=== PATIENT | female | born 1980 | race Caucasian/White ===

== ENCOUNTER 2017-03-16 17:25 | Emergency (ER) | payer SELFPAY ==
[~2017-03-16] VITALS: Ht 160 cm; Wt 104.5 kg
[2017-03-16 17:30] VITALS: BP 134/87; PULSE 94; RESP 22; O2SAT 93
[2017-03-16 17:49] VITALS: BP 143/100; RESP 16; O2SAT 94
[2017-03-16] MEDS ORDERED: FOLI1TAB18 PO (17:59)
[2017-03-16] MEDS ORDERED: PREN-56 PO (17:59)
--- NOTE | 2017-03-16 18:50 | ED.REPORT ---
HPI- Female Date of Service March 16, 2017 ED Provider: Kd Chacon MD Patient is a 37 year old, female, without significant past medical history who presents to [facility] ED accompanied by her complaining of vaginal bleeding for 4 days. Patient went to [facility] to find out that she was about 9 weeks . She reports mild vaginal spotting that started 3 days ago and today she started having sharp pelvic pain and more intense vaginal bleeding. She denies chills, fever, nausea, vomiting, diarrhea, weakness. Nursing Notes Stated Complaint: POSS MISCARRIAGE Chief Complaint: Female Abdominal Pain Nursing Notes Reviewed: Yes Allergies: Coded Allergies: No Known Allergies (Unverified , 03/16/17) Scheduled Folic Acid (Folic Acid) 1 Mg Tablet 1 MG PO DAILY Nitrofurantoin Macrocrystal (Nitrofurantoin) 25 Mg Capsule 100 MG PO BID [id number]/Iron Fumarate/FA/Dss ( 19 Tablet) 1 Each Tablet 1 EACH PO DAILY General Time Seen by MD: 18:06 Chief Complaint Pelvic pain, Vaginal bleeding... (Moderate) Hx Obtained From: Patient Arrived By: Walk-in Sudden in Onset?: No Onset Occurred: 3 days ago Context of Onset: , 1st trimester Symptom Duration: Since onset Location: : LLQ: RLQ Quality: Cramping Radiation: Does not radiate Severity: Current: Mild Status: Positive - ED urine HCG Sexual History / Control: Reports control pills : 2 Para: 1 RH Status / Blood Type: Rh Positive Recent Healthcare: No recent doctor visit Past Medical History Past Medical History Notes: None Past Surgical History Reports: Appendectomy, Smoking History Current Every Day Smoker Social History Alcohol Use: Denies alcohol use Drug Use: Denies drug use Ambulatory Status Independent Review of Systems Basic Review of Systems Eyes: Vision NL, No discharge Respiratory: No shortness of breath, No cough, No wheeze Cardiovascular: No chest pain, No dyspnea on exertion, No orthopnea, No parox noct dyspnea, No palpitations Hematologic: No bruising Allergy / Immune: No allergy Psychiatric: Normal thought content Constitutional: Denies: Chills, Fatigue, Fever, Malaise Female: Reports: Pelvic pain, Vaginal bleeding - abnl, Denies: Dysuria, Flank pain, Urinary frequency Physical Exam Initial Vital Signs Vital Signs (First) Date Time Temp Pulse Resp B/P Pulse Ox O2 Delivery O2 Flow Rate FiO2 03/16/17 17:30 37.0 94 22 134/87 93 Room Air Initial VS: Reviewed, Vital signs abnormal (Pulse 94, respiration rate 22) General/Constitutional: Well-developed, Well-nourished Head / Eyes: Atraumatic, Normocephalic, PERRL ENT: Mucous membranes moist, Conjunctiva normal, No scleral icterus Neck: Supple, Non-tender, Full range of motion Respiratory: Breath sounds normal, Clear to auscultation, No respiratory distress Cardiovascular: Regular rate & rhythm, Heart sounds normal, Intact distal pulses Abdomen / GI: Soft, No guarding, No rebound Back: No CVA tenderness Lymphatic: No lymphadenopathy Extremities: Vascular intact, Neuro intact, No swelling, No tenderness Skin: Warm, Dry, No cyanosis Neurologic: Alert, Oriented, Nonfocal Psychiatric: Mood/affect normal, Behavior normal, Normal thought content Female Genitourinary: Human Resources Operations Coordinator present, External genitalia NL, No lesions or rash, Perineal skin NL Vaginal Bleeding / Discharge: Positive: Bleeding moderate, Discharge bloody, Discharge thick Pelvic Exam: Positive: Os is open (1 cm) Tenderness/Guarding/Rebound: Positive: Tender LLQ... (Mild), Tender RLQ... ( Mild), Tender suprapubic Interpretation & Diagnostics Lab Results Interpretation Result Diagram: 03/16/17184403/16/171844 Test 03/16/17 18:33 03/16/17 18:45 03/16/17 18:55 Hold Urine Received (Received) White Blood Count 11.2th/mm3 (3.8-10.1) Red Blood Count 4.44mil/mm3 (3.90-5.20) Hemoglobin 13.4g/dL (12.0-15.6) Hematocrit 39.5% (35.0-46.0) Mean Corpuscular Volume 89.0fL (81-100) Mean Corpuscular Hemoglobin 30.2pg (27.0-35.0) Mean Corpuscular Hemoglobin Concent 33.9% (32.0-37.0) Red Cell Distribution Width 12.7% (12.3-15.4) Platelet Count 287bil/L (150-400) Sodium Level 136mEq/L (134-144) Potassium Level 4.2mEq/L (3.5-5.2) Chloride Level 98mEq/L (97-108) Carbon Dioxide Level 20mmol/L (18-29) Blood Urea Nitrogen 10mg/dL (6-20) Creatinine 0.68mg/dL (0.57-1.00) Estimat Glomerular Filtration Rate 140mL/min (>59) Glucose Level 101mg/dL (60-99) Calcium Level 9.2mg/dL (8.5-10.1) Total Bilirubin 0.2mg/dL (0.0-1.2) Aspartate Amino Transf (AST/SGOT) 15U/L (0-50) Alanine Aminotransferase (ALT/SGPT) 14U/L (0-32) Alkaline Phosphatase 60U/L (25-150) Total Protein 7.0g/dL (6.4-8.4) Albumin 3.7g/dL (3.4-5.0) HCG Beta Subunit [id number]/mL Hold [place] Top Tube Received (Received) Urine Color Yellow (YELLOW) Urine Appearance Clear (CLEAR,HAZY) Urine pH 5.5 (5.0-8.0) Urine Specific [place] 1.025 (1.003-1.035) Urine Protein Negativemg/dL (NEG,TRACE) Urine Glucose (UA) Negativemg/dL (NEGATIVE) Urine Ketones Negativemg/dL (NEGATIVE) Urine Occult Blood Small (NEGATIVE) Urine Nitrite Positive (NEGATIVE) Urine Bilirubin Negative (NEGATIVE) Urine Urobilinogen Normalmg/dL (NORMAL) Urine Leukocyte Esterase Negative (NEGATIVE) Urine RBC 0-2/hpf (0-2) Urine WBC 0-5/hpf (0-5) Urine Epithelial Cells Few/hpf (NONE-MOD) Urine Crystals None seen (NONE SEEN) Urine Bacteria Many/hpf (NONE-FEW) Urine Hyaline Casts None/lpf (NONE) Urine Granular Casts None seen (NONE SEEN) Urine Waxy Casts None seen (NONE SEEN) Urine Red Blood Cell Casts None seen (NONE SEEN) Urine White Blood Cell Casts None seen (NONE SEEN) Urine Mucus Present (None Seen) Urine Trichomonas None seen (NONE SEEN) Urine Yeast None (NONE SEEN) Urinalysis Comment None Urine Culture Reflexed Indicated Lab Results Interpretation: Positive UA test HCG-beta 18953 Rh + CBC Interpretation WBC elevated (11.2) US Focused OB Exam Type: Diagnostic Exam Interpreted by: Allied health pract Indication: Quant hCG positive, by patient hx, Pelvic pain, Vaginal bleeding Interpretation: demise, Complex ovarian cyst Re-Eval/Medical Decision Med Decision/Clinical Course Patient is a 37 year old female who presented to ED c/o vaginal bleeding and pelvic pain. Urine dip shows positive , 2+ leukocytes, positive nitrites, and positive blood. Transvaginal/pelvic US revealed demise, complex left ovarian cyst and intrauterine mass. Dr. Deras, [facility]BS[facility] has been consulted. He recommended two options, surgical and/or medical evacuation. Options were discussed with the patient and her . They opted for medical management. Patient was given misoprostol, 400 mg orally once while in the ED. She will take the second dose, 400 mg in 4 hours. She was consulted on possible side effects. She was recommended to take Ibuprofen as needed for cramps. She was sent home with Zofran for nausea. She will follow up with OB/ [facility] clinic within a few days. She was given a prescription for Nitrofurantoin to treat her UTI. Patient understands and agrees with the plan. She was discharged in a stable condition. Counseled Regarding: Diagnosis, Lab results, Need for follow-up, When/why to return to ED Discharge & Departure Shift Change Sign-Out Response to Therapy: Improved Impression: Primary Impression: demise Additional Impression: UTI (urinary tract infection) Urinary tract infection type: site unspecified Hematuria presence: with hematuria Qualified Code: N39.0 - Urinary tract infection, site not specified Disposition: Home Discharge Condition Condition: Stable Additional Instructions: Thank you for seeking care at Emergency Department today. We are very sorry for the loss of your baby. You opted for medical management. You received a first dose of misoprostol, 400 mg orally while in the Emergency Department. The second dose should be taken in 4 hours. You may have abdominal cramping, vaginal bleeding and nausea. Please take Ibuprofen for cramping and Zofran for nausea as needed. Please call [facility]ICAL OBSERVER clinic tomorrow and schedule a follow up appointment for further treatment and management of your pelvic ultrasound findings. Address: [address] [place] [id number]. Phone: . You are also given an antibiotic to treat urinary tract infection. Please take it as directed. Call residency clinic and make an appointment to establish care with a primary care provider. Address: [address] , [place] [address]. Phone: . Please return to Emergency Department if your symptoms worsen. Thank you for letting us partake in your care today. Referrals: NOPCP (PCP) EDSupervising Provider for APC: Kd Chacon MD Attending Statement Attending attestation: I saw this patient in conjunction with the above named resident. I was present for all cotton portions of the history taking and physical examination. I agree with the workup, evaluation, treatment and disposition. Kd Manriquez MD, MD March 16, 2017 18:50 Michelle Jefferson March 16, 2017 18:52 Lynda Siegel DO March 16, 2017 19:25
[2017-03-16 18:53] LABS: Mean Corpuscular Hemoglobin 30.2 pg (27.0-35.0)
[2017-03-16 19:13] LABS: APPEARANCE,URINE CLEAR (CLEAR,HAZY); COLOR,URINE YELLOW (YELLOW); PH,URINE 5.5 (5.0-8.0)
[2017-03-16 19:14] LABS: OCCULT BLOOD,URINE SMALL (NEGATIVE); UROBILINOGEN,URINE NORMAL (NORMAL)
--- NOTE | 2017-03-16 20:41 | DRSVH ---
PROCEDURE: US OB<14 WKS+OB TRANSVAG INDICATIONS: 37 year-old female with suspected miscarriage. OUTSIDE/PRIOR DATING DATA: Last menstrual period (LMP): Not known. LMP-based estimated date of delivery (CELSO): Not known. First dating scan (date and location): Present study. Estimated date of delivery (CELSO) from first dating scan: Not applicable. TECHNIQUE: Real-time scanning was performed of the fetus and maternal pelvic organs, with image documentation. Endovaginal scanning was also performed to better visualize the fetus and maternal ovaries. COMPARISON: None. FINDINGS: Embryo: Single intrauterine gestation demonstrates no detectable heart rate on M-mode or power Doppler interrogation. [place] rump length of 1.5 cm corresponds with 7 weeks 6 days estimated gestatio nal age. Normal yolk sac is present. Amniotic fluid is qualitatively normal in amount. Measurement variability in dating: +/- 4 weeks by LMP, +/- 7 days by mean sac diameter (use before 6 weeks gestation if crown-rump length not able to be measured), +/- 5 days by crown-rump length (6-12 weeks gestation). Maternal organs: Right uterine fundal fibroid measures 9.2 x 9.0 x 8.7 cm. Left ovary demonstrates a dominant multiseptated cyst; right ovary appears unremarkable in morphology. Limited images through the kidneys demonstrate no hydronephrosis. IMPRESSION: 1. Constellation of findings diagnostic for early failure. 2. Large right uterine fundal fibroid measures up to 9.2 cm. 3. Dominant multiseptate cyst within the left ovary, presumably functional given the patient's age. Dictated by: Gabe Valdez M.D. on 03/16/2017 at 20:34 Approved by: Gabe Valdez M.D. on 03/16/2017 at 20:40
[2017-03-16] MEDS ORDERED: _Ondansetron ODT 4 mg Tablet PO PRN (21:55)
[2017-03-16] MEDS ORDERED: NITR25CA2 PO (21:58)
[2017-03-16 22:15] VITALS: BP 136/95; PULSE 88; RESP 16; O2SAT 97
== END 2017-03-16 22:16 | disposition home or self-care (01) ==
LOC: SED 17:25
DX: O36.4XX0 Maternal care for intrauterine death, not applicable or unspecified (principal); N39.0 Urinary tract infection, site not specified; F17.200 Nicotine dependence, unspecified, uncomplicated; Z3A.01 Less than 8 weeks gestation of pregnancy